=== PATIENT | female | born 1955 | race Caucasian/White ===

== ENCOUNTER 2023-09-27 14:43 | Emergency (ER) | payer MEDICARE, SELFPAY ==
[2023-09-27 14:50] VITALS: BP 151/61; PULSE 77; RESP 16; TEMP 36.8; O2SAT 97
[2023-09-27 15:05] VITALS: O2SAT 97
--- NOTE | 2023-09-27 15:12 | ED.GENADUL_ITS ---
Discharge Plan Disposition Condition: Stable Discharge Details Chief Complaint: Abd Prob Clinical Impression: Diarrhea, Abdominal pain Primary Care Provider: Neetu,Local ED Provider: Freddy Rivera Home Meds and New Rx's Prescriptions: No Action No Known Home Meds HPI General Mode of arrival: ambulatory . Date/Time Provider Initiated Documentation: 09/27/23 14:45 . Limitations to Documentation: no limitations . Information obtained by: patient . History of Present Illness 68 year old F presents to the emergency department with the chief complaint of Diarrhea, described as moderate, Patient started experiencing this day(s) (2) and it has been constant. No relieving factors improve symptom(s), No exacerbating factors reported . Patient notes denies chest pain, fever/chills and shortness of breath. Patient did receive the following treatments prior to arrival, none Related Data Home Medications Medication Instructions Recorded Confirmed Unknown [No Known Home Meds] 09/27/23 09/27/23 Allergies Allergy/AdvReac Type Severity Reaction Status Date / Time No Known Allergies Allergy Unverified 09/27/23 14:49 General Stated Complaint: Abd Prob YAJAIRA: 3 Review of Systems All systems reviewed & are unremarkable except as noted in HPI and below Constitutional Constitutional: Denies chills, Denies fever(s) and Denies weakness Cardiovascular Cardiovascular: Denies chest pain and Denies dyspnea Respiratory Respiratory: Denies cough and Denies dyspnea Gastrointestinal Gastrointestinal: Reports abdominal pain, Reports cramping and Denies vomiting Musculoskeletal Musculoskeletal: Denies joint swelling Neurologic Neurologic: Denies weakness Exam Const General: no acute distress Orientation: alert HENMT Head: normal to inspection Ears: external ears normal General nose exam: external nose normal Mouth: moist mucous membranes Eyes General: appearance normal, both eyes and all related structures Neck Neck: normal visual inspection Resp Effort & Inspection: normal respiratory effort and able to speak in complete sentences Cardio Rate: regular rate GI Palpation: soft, not firm, no guarding and tender Skin General skin exam: no rashes or lesions noted Neuro General: patient alert and patient oriented x3 Extrem General: normal to inspection Psych Mental Status: mental status grossly normal Course Vital Signs Vital signs: Vital Signs Temperature 36.8 C 09/27/23 14:50 Pulse 77 09/27/23 14:50 Respiratory Rate 16 09/27/23 14:50 Blood Pressure 151/61 H 09/27/23 14:50 Pulse Oximetry 97 09/27/23 14:50 Temperature 36.8 C 09/27/23 14:50 Temperature Source Temporal Artery Scan 09/27/23 14:50 Pulse 77 09/27/23 14:50 Respiratory Rate 16 09/27/23 14:50 Respiratory Effort Normal, Non-Labored 09/27/23 14:58 Blood Pressure 151/61 H 09/27/23 14:50 Blood Pressure Position Sitting 09/27/23 15:05 Pulse Oximetry 97 09/27/23 15:05 Oxygen Delivery Method Room Air 09/27/23 15:05 Oxygen Flow Rate 0 09/27/23 14:50 Pain Level 3 09/27/23 15:05 Comment took imodium on for max dose over last 4 days, reluctant to take meds. 09/27/23 14:50 Medical Decision Making 5-year-old male who had a total hysterectomy 2 months ago with low-grade cancer at that time, being worked up for lymph node seen on additional imaging, does live in [place] where she is having all this treatment and workup done. Patient currently traveling and is in this area and has had diarrhea for the last 2 days along with some lower abdominal cramping. Denies any fevers, vomiting, chest pain, difficulty breathing. He is alert and oriented x 4 on arrival speaking clearly no distress, abdomen is soft does have tenderness in the lower quadrants. More tender in the left than the right no guarding or rebound. Given her recent hospitalization and in and out of medical facilities with reported watery diarrhea will obtain a C. difficile specimen and send fecal bacterial pathogens, given her tenderness on exam will obtain CBC, CMP, lipase and CT abdomen pelvis to evaluate for today such as diverticulitis versus colitis. No pain out of proportion on exam so doubt entities such as mesenteric ischemia Patient doing well and is stable, labs show no emergent findings. CT scan still pending. Still does not be able to provide a stool sample. Patient will be signed out to oncoming provider pending CT results and if patient is able to C. difficile results. Differential Diagnosis Differential Diagnosis: Diverticulitis, pancreatitis, C. difficile, colitis Quality:SDOH Health Related Social Needs: No Data to Display PFSH All Active Problems (Updated 09/27/23 @ 16:41 by Freddy Rivera MD) Abdominal pain (Acute) Diarrhea (Acute) Social History Smoking/Tobacco Use Status: Never Smoking risk assessment performed?: Yes Alcohol Intake: current Alcohol Intake frequency: holidays/special occasions only Drug use: Never Substance use type: does not use Housing: house Do you feel safe at home: Yes Do you feel safe in your relationship?: Yes
[2023-09-27] MEDS: Normal Saline 1,000 ML 1000 ML IV (15:24)
[2023-09-27 15:27] LABS: Abs Immature Grans 0.01 10^3/uL (0.0-0.06); HCT 39.8 % (36.0-46.0); HGB 12.9 g/dL (11.2-15.7); MCH 29.6 pg (27.0-33.0); MCHC 32.4 % (32.0-36.0); MCV 91 fL (80-95); MPV 10.7 fL (8.0-11.0); Platelet Count 126 10^3/uL (130-400); RBC 4.36 10^6/uL (3.93-5.22); RDW 12.2 % (11.7-14.6); RDW-SD 40.7 fL; WBC 4.13 10^3/uL (4.4-10.8)
[2023-09-27 15:41] LABS: INR 1.1 (0.9-1.1); PTT Activated 27.2 sec (23.6-32.8); Prothrombin Time 10.8 sec (9.1-11.1)
[2023-09-27 15:47] LABS: Absolute Eosinophil Count 0.08 10^3/uL (0.0-0.7); Absolute Lymphocyte Count 1.86 10^3/uL (1.2-3.4); Absolute Monocyte Count 0.41 10^3/uL (0.1-0.8); Absolute Neutrophil Count 1.78 10^3/uL (1.2-6.7); Atypical Lymphocytes % 5 %
[2023-09-27 15:48] LABS: Diff Comment Diff Reviewed; RBC Morphology Normal
[2023-09-27 15:49] LABS: ALT 34 U/L (14-59); AST 26 U/L (15-37); Albumin 3.8 g/dL (3.4-5.0); Alkaline Phosphatase 70 U/L (46-116); Anion Gap 9.3 mmol/L (3-11); BUN 15 mg/dL (7-18); Bilirubin, Total 0.3 mg/dL (0.2-1.0); CO2 25.7 mmol/L (21.0-32.0); CREATININE 1.1 mg/dL (0.55-1.02); Calcium 9.5 mg/dL (8.5-10.1); Chloride 112 mmol/L (98-107); Estimated GFR 54.06 (mL/min/1.73m2); Glucose 97 mg/dL (74-106); Magnesium 2.1 mg/dL (1.8-2.4); Potassium 3.8 mmol/L (3.5-5.1); Sodium 147 mmol/L (136-145); Total Protein 7.3 g/dL (6.4-8.2)
[2023-09-27 16:04] LABS: Procalcitonin < 0.1 ng/mL
[2023-09-27] MEDS: Normal Saline - Diluent 50 ML VIAL IJ (16:07)
[2023-09-27] MEDS: Omnipaque 350 MG/ML 100 ML BTL IJ (16:08)
--- NOTE | 2023-09-27 16:25 | DI.CT_ITS ---
Exam(s) CT ABDOMEN PELVIS W EXAM: CT ABDOMEN PELVIS W CLINICAL HISTORY: left lower abdomen pain, diarrhea,recnt hysterecto. TECHNIQUE: Imaging Protocol: Axial computed tomography images with coronal and sagittal reformatted images were created and reviewed CONTRAST MATERIAL: Intravenous: Omnipaque-350 100cc Oral: None COMPARISON: No exams were available for comparison FINDINGS: VISUALIZED LUNG BASES: No nodules nor pleural effusions evident. ABDOMEN: There is no ascites. LIVER: Liver is somewhat hypodense implying an element of steatosis. There is a cyst in the medial a spect of the right hepatic lobe which measures approximately 2.5 x 2.0 cm. GALLBLADDER/BILIARY: There are no calcified gallstones noted but the gallbladder wall appears [place]. CBD diameter is upper normal. PANCREAS: The entire pancreas is diffusely hypodense consistent with pancreatitis. Pancreatic duct i s not dilated. There is no distinct pancreatic mass. SPLEEN: Spleen size is upper normal. Splenic and portal veins are patent. ADRENALS: There are no significant adrenal masses. KIDNEYS:Parapelvic cysts noted in both kidneys. Multiple calculi seen lower pole calyx of the left k idney. A tiny solitary calculus seen in the upper pole of the right kidney. Ureters are not dilated . Urinary bladder is collapsed and difficult to evaluate.. ABDOMINAL AORTA: Abdominal aorta is not enlarged. LYMPH NODES:There is no retroperitoneal nor paraaortic adenopathy. ABDOMINAL WALL: No evidence of significant anterior abdominal wall nor inguinal hernia. GI: There is no evidence of bowel obstruction, free air, nor abscess. PELVIS: GI: No evidence of appendicitis.There is sigmoid diverticulosis. No evidence of obvious acute divert iculitis. LYMPH NODES: There is no intrapelvic nor inguinal adenopathy. REPRODUCTIVE: Uterus is surgically absent. No abnormal adnexal masses and no free fluid in the pelvi s. URINARY BLADDER: Collapsed. OSSEOUS: No fractures and no significant osseous lesions. IMPRESSION: 1. The pancreas is diffusely hypodense-edematous consistent with acute pancreatitis. Pancreatic duct is not dilated. 2. There are no calcified gallstones but the gallbladder wall appears somewhat edematous. CBD diamet er is upper normal. There are multiple parapelvic cysts noted in both kidneys. There are calculi in both kidneys, most prominent in the lower pole the left kidney. Ureters are not dilated. No hydron ephrosis nor hydroureter and no calculi seen in the urinary bladder. 3. Sigmoid diverticulosis without evidence of obvious acute diverticulitis. No evidence of appendici tis. 4. Prior hysterectomy. No abnormal masses nor fluid collections in the pelvis. Report called by myself to ER physician 09/27/2023 5:15 p.m. RADIATION DOSE DELIVERED: 1,432.74mGy.cm Total DLP DATA REPOSITORY: All CT scans at this facility are submitted to the National Radiology Data Registry (NRDR) Dose Index Registry (DIR) with the [employer] (ACR). RADIATION OPTIMIZATION: All CT scans at this facility use at least one of these dose optimization te chniques: automated exposure control; mA and/or kV adjustment per patient size (includes targeted exa ms where dose is matched to clinical indication); or iterative reconstruction.
[2023-09-27 16:32] VITALS: BP 123/61; PULSE 77; O2SAT 98
[2023-09-27 16:40] LABS: Bilirubin Negative (Negative); Blood Small (Negative); Clarity Sl Cloudy (Clear); Glucose Negative (Negative); Ketones Negative (Negative); Leukocyte Esterase Trace (Negative); Nitrite Negative (Negative); Urobilinogen 0.2 mg/dL (Up to 0.2); pH 5.5 (5-8)
[2023-09-27 16:47] LABS: Bacteria Few HPF (Negative); C & S Indicated? Yes; Casts Negative LPF (Negative); Crystals Negative HPF (Negative); Epithelial Cells Few HPF (Negative); Mucus Trace (Negative)
--- NOTE | 2023-09-27 17:07 | DI.VRAD_ITS ---
PROCEDURE INFORMATION: Exam: CT Abdomen And Pelvis With Contrast Exam date and time: 09/27/2023 4:13 PM Age: 68 years old Clinical indication: Other: Left lower abdomen pain, diarrhea, recent hysterectomy; Prior surgery; Surgery date: 1-6 months; Surgery type: Hysterectomy in June. TECHNIQUE: Imaging protocol: Computed tomography of the abdomen and pelvis with contrast. Contrast material: OMNIPAQUE 350; Contrast volume: 100 ml; Contrast route: INTRAVENOUS (IV); COMPARISON: No relevant prior studies available. FINDINGS: Liver: 2.5 cm simple cyst right lobe of the liver Gallbladder and bile ducts: Gallbladder is unremarkable. The common duct is prominent. It measures 11 millimeters. This may be due to elderly status. However, if biliary obstruction is suspected clinically, recommend further evaluation. Pancreas: Mild Inflammatory changes around the head of the pancreas may represent mild pancreatitis in the appropriate clinical setting. Spleen: Normal. No splenomegaly. Adrenal glands: Normal. No mass. Kidneys and ureters: 13.8 x 11.9 x 13 mm calculus in the lower pole calyx.. Pararenal cysts in both kidneys. Nonobstructing right renal calculus. No ureteral dilatation. No ureteral calculus. Stomach and bowel: Diverticulosis of the rectosigmoid. No diverticulitis Appendix: Normal appendix Intraperitoneal space: Unremarkable. No free air. No significant fluid collection. Vasculature: Unremarkable. No abdominal aortic aneurysm. Lymph nodes: Unremarkable. No enlarged lymph nodes. Urinary bladder: The bladder is decompressed Reproductive: Surgical resection of the uterus Bones/joints: Unremarkable. No acute fracture. Soft tissues: Unremarkable. IMPRESSION: 1. Mild Inflammatory changes around the head of the pancreas may represent mild pancreatitis in the appropriate clinical setting. 2. The common duct is prominent. It measures 11 millimeters. This may be due to elderly status. However, if biliary obstruction is suspected clinically, recommend further evaluation. 3. 13.8 x 11.9 x 13 mm calculus in the lower pole calyx.. 4. No ureteral dilatation. No ureteral calculus. Dictated and Authenticated by: Barry Gore MD. Ordering:ARMANDO Hayes MD
[2023-09-27 17:31] LABS: Lipase 38 U/L (16-77)
--- NOTE | 2023-09-27 17:34 | W.EDPROG ---
Date of service: 09/27/23 Time of Service: 17:00 Medical Decision Making Signout accepted from off going physician. Patient is a 68-year-old female with history of breast cancer, recent total hysterectomy presenting with diarrhea. Final disposition pending CT imaging of the abdomen. Lab work reviewed. Mild leukopenia, creatinine of 1.1, no prior for comparison. I discussed the CT findings with the radiologist and there is some concern for change around the pancreas. I added a lipase which was negative. On my evaluation of the patient, she has no epigastric or right upper quadrant tenderness. I do not suspect that the pancreatic changes noted on CT scan or acute or associated with acute pancreatitis. The patient was observed in the emergency department and did not have any additional bowel movements. I suspect that this may be a viral related diarrheal illness. She was prescribed Bentyl. Return precautions advised. Quality:[facility] Health Related Social Needs: No Data to Display Sign Out Sign Out Data: Sign Out Comment: 5-year-old here with 2 to 3 days of what she describes as explosive watery diarrhea, and also left lower quadrant pain. Reassuring abdominal exam with minimal tenderness in the left lower quadrant. Labs reassuring, pending CT read and if she is able to obtain C. difficile testing. If she is unable to give a sample can consider sending her home with a stool collection kit to bring back to the lab. Last updated by Freddy Rivera MD at 09/27/23 16:45 Discharge Plan Disposition Patient Disposition: Home Condition: Stable Discharge Details Clinical Impression: Diarrhea, Abdominal pain Primary Care Provider: Neetu,Local ED Provider: Rufina Caro Home Meds and New Rx's Prescriptions: New dicyclomine 10 mg capsule 10 mg PO TID Qty: 20 0RF Discharge Instructions Instructions: Acute Diarrhea (ED) Additional Instructions: if you can provide a stool sample, return it to the hospital for testing take the bentyl to help with cramping can take an immodium as needed for severe diarrhea
[2023-09-27] MEDS: Dicyclomine 10 MG CAP (18:41)
--- NOTE | 2023-09-29 07:55 | NUR.NOTE ---
Accessed chart to look up whether or not on antibiotic for culture result. Nursing Note:
== END 2023-09-27 18:42 | disposition home or self-care (01) ==
PROVIDERS: Emergency Medicine; Emergency Provider Emergency Medicine
DX: R19.7 Diarrhea, unspecified (principal); R10.13 Epigastric pain; Z90.710 Acquired absence of both cervix and uterus; Z85.118 Personal history of other malignant neoplasm of bronchus and lung; Z85.3 Personal history of malignant neoplasm of breast
CPT/HCPCS: 00123; 36415; 80053; 83690; 84145; 96360; 96361; 99285; 74177; 81003; 81015; 83735; 85025; 85610; 85730; 87086; J3490